=== PATIENT | female | born 1955 | race Caucasian/White ===

== ENCOUNTER 2020-09-28 10:10 | Outpatient (CLI) | payer MEDICARE ==
[2020-09-28] MEDS ORDERED: Iopamidol 370 76% 100 ML VIAL ONE (10:21)
[2020-09-28 11:49] LABS: Estimated GFR-MDRD - POC Greater than 90
== END 2020-09-28 10:11 | disposition home or self-care (01) ==
LOC: CT 10:10
PROVIDERS: ATTEND Internal Medicine
DX: K31.5 Obstruction of duodenum (principal); R63.4 Abnormal weight loss
CPT/HCPCS: 74177; 82565; Q9967